=== PATIENT | female | born 1985 | race Two or more races ===

== ENCOUNTER 2024-08-25 04:46 | Inpatient (IN) | payer OTHER ==
[~2024-08-25] VITALS: Ht 160 cm; Wt 79.4 kg
[2024-08-25 06:01] VITALS: BP 120/79
[2024-08-25] MEDS ORDERED: PRENATAL TABLE1 EAC1 PO (08:29)
[2024-08-25] MEDS ORDERED: SYNTHROID112 MCG PO (08:29)
[2024-08-25] MEDS ORDERED: IRON236 MG PO (08:30)
[2024-08-25] MEDS ORDERED: ERYTHROMYCIN BASE OPHT 1GM EACH TUBE OP ONE (12:45)
[2024-08-25] MEDS ORDERED: CARBOPROST TROMETHAMINE 250 MCG/ML AMPUL IM ONE (12:45)
[2024-08-25] MEDS ORDERED: OXYTOCIN 10 UNITS/ML VIAL IV ONE (12:45)
[2024-08-25] MEDS ORDERED: MEPERIDINE HCL/PF 50 MG/ML VIAL IM SCH (13:00)
[2024-08-25] MEDS ORDERED: PROMETHAZINE HCL 50 MG/ML AMPUL IV SCH (14:00)
[2024-08-25 14:39] VITALS: BP 138/70
[2024-08-25] MEDS ORDERED: CEFAZOLIN SODIUM 1,000 MG VIAL IV STA (14:56)
[2024-08-25 16:00] VITALS: BP 129/63
[2024-08-25] MEDS ORDERED: MEPERIDINE HCL/PF 50 MG,MEPERIDINE HCL/PF 25 MG IM SCH (16:00)
[2024-08-25] MEDS ORDERED: CEFAZOLIN SODIUM 1,000 MG VIAL IV SCH (20:00)
[2024-08-26 00:54] VITALS: BP 110/69
[2024-08-26 07:00] LABS: HEMATOCRIT 39.4 % (36.0-45.00); HEMOGLOBIN 13.5 g/dL (12.0-15.00); MEAN CELL VOLUME 93.7 fL (80.00-100.00); MEAN CORPUSCULAR HGB CONC 34.2 g/dl (32.0-36.0); PLATELET COUNT 220 K/uL (150-450); RED BLOOD COUNT 4.21 M/uL (4.00-6.00); RED CELL DISTRIBUTION WIDTH 13.3 % (11.5-14.5)
[2024-08-26 09:00] VITALS: BP 131/69
[2024-08-26] MEDS ORDERED: ACETAMINOPHEN 500 MG GEL..CAP PO PRN (09:00)
[2024-08-26] MEDS ORDERED: NAPROXEN 500 MG TABLET PO PRN (09:00)
[2024-08-27 00:30] VITALS: BP 145/86
[2024-08-27] MEDS ORDERED: LEVOTHYROXINE SODIUM 112 MCG TABLET PO SCH (06:00)
[2024-08-27 12:07] VITALS: BP 120/79
== END 2024-08-27 18:38 | disposition home or self-care (01) | DRG 786 ==
LOC: LDR 04:46 → OB/GYN 04:46 → LDR 07:31 → OB/GYN 12:08
PROVIDERS: ADMIT Specialist; ATTEND Specialist
PROC: 4A1HXCZ Monitoring of Products of Conception, Cardiac Rate, External Approach (ICD-10-PCS; 2024-08-25)
PROC: 10D00Z1 Extraction of Products of Conception, Low, Open Approach (ICD-10-PCS; principal; 2024-08-25 14:45)
DX: O69.81X0 Labor and delivery complicated by cord around neck, without compression, not applicable or unspecified (principal); O24.02 Pre-existing type 1 diabetes mellitus, in childbirth; O98.52 Other viral diseases complicating childbirth; E10.9 Type 1 diabetes mellitus without complications; B00.9 Herpesviral infection, unspecified; Z3A.37 37 weeks gestation of pregnancy; Z37.0 Single live birth; Z20.822 Contact with and (suspected) exposure to COVID-19; Z79.4 Long term (current) use of insulin